=== PATIENT | male | born 1985 | race African-American/Black ===

== ENCOUNTER 2022-01-02 12:11 | Emergency (ER) | payer SELFPAY ==
[~2022-01-02] VITALS: Ht 185.5 cm; Wt 73.0 kg
[2022-01-02 12:11] VITALS: BP 122/86
[2022-01-02] MEDS ORDERED: IBUPROFEN 800 MG (MOTRIN) TAB PO STA (12:24)
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
[2022-01-02] MEDS ORDERED: TETANUS,DIPTH,PERTUSS P/F (BOOSTRIX) 0.5 ML VIAL IM ONE (12:45)
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
[2022-01-02] MEDS ORDERED: CATHETER FLUSH 10 ML SYR IV PRN (13:30)
[2022-01-02] MEDS ORDERED: IOHEXOL 350 MG/ML 100 ML (OMNIPAQUE 350) VIAL IV ONE (13:30)
[2022-01-02] MEDS ORDERED: NS 100 ML (IVPB) BAG IV ONE (13:30)
[2022-01-02] MEDS ORDERED: HOLD METFORMIN - RECEIVED CONTRAST 20 ML VIAL IV SCH (13:30)
== END 2022-01-02 14:19 | disposition home or self-care (01) ==
LOC: ER 12:18
DX: S52.514A Nondisplaced fracture of right radial styloid process, initial encounter for closed fracture (principal); S20.219A Contusion of unspecified front wall of thorax, initial encounter; M25.512 Pain in left shoulder; F17.200 Nicotine dependence, unspecified, uncomplicated; Z23 Encounter for immunization; V49.40XA Driver injured in collision with unspecified motor vehicles in traffic accident, initial encounter; Y92.410 Unspecified street and highway as the place of occurrence of the external cause
CPT/HCPCS: 73030; 73110; 93005